=== PATIENT | female | born 1940 | race Caucasian/White ===

== ENCOUNTER → 2017-01-22 | Outpatient (CLI) | payer MEDICARE, OTHER ==
[~2017-01-22] MED LIST: ASPI81TA2 PO; BUME1TAB16 PO; HYDR-3989 PO; LEVO100T12 PO; LISI-126 PO; MULT1TAB69 PO; SULF1TAB3 PO
--- NOTE | 2017-01-27 08:10 | ECHOF ---
DATE 01/22/2017 INDICATION Heart murmur. TECHNICAL QUALITY Technically good 2-D, M-mode, Doppler echocardiographic images were submitted for interpretation. FINDINGS 1. CARDIAC CHAMBERS. All cardiac chamber measurements are normal. Aortic root diameter is normal. RV size and contractility appear normal. 2. LEFT VENTRICLE. Wall thickness is normal. Wall motion analysis is normal. Systolic function is normal. EF is estimated about 60%. Diastolic function is normal. 3. VALVES. Aortic and mitral valve exhibit mild sclerosis, normal for patient's age. Some calcification and sclerosis at the commissures of aortic valve noted. It is trileaflet and opens well. There is mitral annular calcification present. There is some sclerosis and calcification of the aortic root noted. 4. DOPPLER. Shows mild to moderate mitral regurgitation, trivial tricuspid regurgitation and aortic regurgitation. Systolic PA pressure is estimated at 28 mmHg. Central venous pressure is normal. 5. No evidence of pericardial effusion, intracardiac masses or demonstrable shunts. IMPRESSION 1. Normal LV size, systolic and diastolic function parameters. Ejection fraction of 60%. 2. Sclerotic aortic and mitral valves. 3. Mild to moderate mitral regurgitation. MTDD
== END ==
LOC: IMA 10:48
PROVIDERS: ATTEND Family Medicine
DX: I08.0 Rheumatic disorders of both mitral and aortic valves (principal); R00.8 Other abnormalities of heart beat
CPT/HCPCS: 93306